=== PATIENT | male | born 1980 | race Two or more races ===

== ENCOUNTER 2017-04-14 15:51 | Emergency (ER) | payer OTHER ==
[~2017-04-14] VITALS: Ht 172.7 cm; Wt 72.6 kg
[2017-04-14] MEDS ORDERED: PROAIR HFA8.5 GM INH (16:14)
--- NOTE | 2017-04-14 16:27 | Emergency Room Report ---
History of Present Illness General Chief Complaint: General Complaint Source: Patient Present Illness HPI 36 YO male presents to the emergency department complaining of discomfort in his throat he denies pain. Patient states that he has irritation when he swallows and some mild nasal congestion since this morning. Patient denies fevers, chills, neck pain or stiffness, cough, or recent ill contacts. Denies CP , Palpitations, LOC, AMS, dizziness, Changes in Vision, Sensation, paresthesias , or a sudden severe headache. Allergies: Uncoded Allergies: FLU SHOT (Allergy, Unknown, 04/14/17) Patient History Past Medical History: see triage record Past Surgical History: none Pertinent Family History: none Reviewed Nursing Documentation: PMH: Agreed, PSxH: Agreed Nursing Documentation-PMH Past Medical History: No History, Except For Hx Asthma: Yes Review of Systems All Other Systems: negative except mentioned in HPI Physical Exam Vital Signs Date Time Temp Pulse Resp B/P (MAP) Pulse Ox O2 Delivery O2 Flow Rate FiO2 04/14/17 16:09 97.3 103 20 136/75 97 Sp02 EP Interpretation: reviewed, normal General Appearance: no apparent distress, alert, GCS 15, non-toxic Head: normocephalic, atraumatic Eyes: bilateral eye normal inspection, bilateral eye PERRL ENT: hearing grossly normal, normal pharynx, no angioedema, normal voice, uvula midline, moist mucus membranes, tonsillar swelling, other - mild cobblestoning of the pharynx, no exudates, mild erythema Neck: full range of motion, no meningismus, no bony tend Respiratory: lungs clear, normal breath sounds, speaking full sentences Cardiovascular #1: regular rate, rhythm Musculoskeletal: back normal, gait/station normal, normal range of motion, non- tender Neurologic: alert, oriented x3, responsive, motor strength/tone normal, sensory intact, speech normal Skin: normal color, no rash, warm/dry, well hydrated Lymphatic: no adenopathy Medical Decision Making PA Attestation Dr. curry is my supervising Physician whom patient management has been discussed with. Diagnostic Impression: Primary Impression: Post-nasal drainage Additional Impression: Sore throat ER Course 36 YO male presents to the emergency department complaining of discomfort in his throat he denies pain. Patient states that he has irritation when he swallows and some mild nasal congestion since this morning. Patient denies fevers, chills, neck pain or stiffness, cough, or recent ill contacts. Denies CP , Palpitations, LOC, AMS, dizziness, Changes in Vision, Sensation, paresthesias , or a sudden severe headache. Ddx considered but are not limited to: pharyngitis, strep, [employer]ETING REPRESENTATIVE, ludwigs angina, URI Vital signs: are WNL, pt. is afebrile H&PE are most consistent with: post nasal drainage causing throat irritation. no evidence of infection at this time, no evidence to suggest abscess at this time. ORDERS: None required at this time as the diagnosis is clinical ED INTERVENTIONS: none required at this time. DISCHARGE: At this time pt. is stable for d/c to home. Will provide printed patient care instructions, and any necessary prescriptions. Care plan and follow up instructions have been discussed with the patient prior to discharge. Last Vital Signs Date Time Temp Pulse Resp B/P (MAP) Pulse Ox O2 Delivery O2 Flow Rate FiO2 04/14/17 16:09 97.3 103 20 136/75 97 Disposition: HOME, SELF-CARE Condition: Stable Scripts Cetirizine Hcl/Pseudoephedrine (ZYRTEC-D TABLET) 1 Each Tab.er.12h 1 EACH ORAL Q12HR for 7 Days, #14 TAB Prov: Chrissie Boone 04/14/17 Lidocaine HCl 2% Viscous (Lidocaine HCl 2% Viscous) 100 Ml Solution 10 ML ORAL QID, #100 ML Prov: Chrissie Boone 04/14/17 Patient Instructions: Sore Throat, [id number] Additional Instructions: Take medications as directed. Follow up with a Primary Care Provider in 3-5 days, even if your symptoms have resolved. --Please review list of primary care clinics, if you do not already have a primary care provider Return sooner to ED if new symptoms occur, or current symptoms become worse. - Please note that this Emergency Department Report was dictated using [employer] voltage technician technology software, occasionally this can lead to erroneous entry secondary to interpretation by the dictation equipment. Chrissie Boone Apr 14, 2017 16:27
[2017-04-14] MEDS ORDERED: LIDOCAINE VISC100 ML ORAL (16:28)
[2017-04-14] MEDS ORDERED: ZYRTEC-D TABLE1 EACH ORAL (16:28)
[2017-04-14 16:38] VITALS: BP 116/70
== END 2017-04-14 16:39 | disposition home or self-care (01) ==
LOC: EMR 16:19
DX: J02.9 Acute pharyngitis, unspecified (principal); R09.82 Postnasal drip; J45.909 Unspecified asthma, uncomplicated
CPT/HCPCS: 99283